=== PATIENT | male | born 1945 | race Caucasian/White ===

== ENCOUNTER 2017-04-26 14:38 | Emergency (ER) | payer OTHER ==
[2017-04-26 14:51] VITALS: TEMP 98.2
--- NOTE | 2017-04-26 15:25 | EDPHY ---
H & P Time Seen by Provider: 04/26/17 15:06 HPI/ROS: CHIEF COMPLAINT: Back pain HISTORY OF PRESENT ILLNESS: Patient is a history of back pain with surgery in August with spinal fusion by Dr. Zamudio at 2 levels. Patient did well but then had recurrent pain. He had a injection by Dr. Pinto on March 25 on the right-sided L3-4 which relieved his symptoms for about a week. 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 Going there included a [address] ride that took 90 minutes. He thinks that might have exacerbated his symptoms. He now has pain over the last week but much worse over the last 2 days which radiates to his left leg and thigh and is worse with weight-bearing. He had numbness and tingling of his left leg 2 days ago but not today. No incontinence. No fever or chills. Symptoms severe for 2 days. Radiates the left leg is noted above. REVIEW OF SYSTEMS: Eye: no change in vision ENT: no sore throat Cardiac: no chest pain or syncope Pulmonary: no cough or SOB Abdomen: no vomiting, diarrhea, abdominal pain Musculoskeletal: HPI Skin: no rash Neuro: no headache Constitutional: no fever : No associated incontinence A comprehensive 10 point review of systems is otherwise negative aside from elements mentioned in the history of present illness. PAST MEDICAL HISTORY: Previous spine surgery and bilateral knee surgery Social history: Recent travel as above, here with spouse General Appearance: Alert and conversant, cooperative. Eyes: No scleral icterus. ENT, Mouth: Normal mucous membranes. Respiratory: Normal respiratory effort, breath sounds equal, lungs are clear to auscultation. Cardiovascular: Regular rate and rhythm. Gastrointestinal: Abdomen is soft and non tender. Neurological: Alert and oriented x3. Normally conversant. Face symmetric, normal movement and sensation in all extremities. Toes downgoing bilaterally, no clonus. Good plantar and dorsiflexion of both feet. 1+ bilateral patellar and ankle reflexes. Straight leg raising negative bilaterally. Skin: Warm and dry, no rashes. Musculoskeletal: No peripheral edema and no joint swelling. No spine tenderness. Compartments are soft in both thighs and lower leg. Psychiatric: Not agitated. Emergency Department course/MDM: Patient requesting MRI and additional 10 mg oral oxycodone which is what he was taking prior to his previous surgery and took about 4 hours prior to arriving here. 174: MRI per Kamini shows extruded L2-3 disk on left, recurrent central stenosis at L5-S1. 1806: Discussed with Inderjit, who reviewed MRI personally; recommendations at 1817 pain control and oral steroids. Smoking Status: Never smoked Constitutional: Initial Vital Signs Temperature (C) 36.8 C 04/26/17 14:48 Heart Rate 86 04/26/17 14:48 Respiratory Rate 16 04/26/17 14:48 Blood Pressure 133/86 H 04/26/17 14:48 O2 Sat (%) 95 04/26/17 14:48 O2 Delivery Mode Room Air Allergies/Adverse Reactions: No Known Allergies Allergy (Unverified 09/20/11 12:10) Home Medications: Medication Instructions Recorded No Medications [NO HOME 1 ea MISC 09/20/11 MEDICATIONS] Oxycodone HCl 04/26/17 methylPREDNISolone [Medrol Dose 1 each PO AD #1 ea 04/26/17 Jatin] oxyCODONE HCL/ACETAMINOPHEN 1 each PO Q4 PRN #11 tablet 04/26/17 [Oxycodone-Acetaminophen 10-300] Medical Decision Making - Diagnostics Imaging Results: Imaging Impressions Lumbar Spine MRI 04/26/17 15:20 Impression: 1. Status post instrumentation and fusion lumbar spine from L4 through S1. 2. Extruded left paracentral disk protrusion at L2-L3, tracking inferiorly from the site of origin, with secondary lateral recess stenosis. 3. 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 4. Other level findings as above. Results called to Dr. Mingo Purdy at 6:00 PM. Differential Diagnosis: Differential considered including but not limited to spinal stenosis, disc herniation, hardware injury, bursitis, cauda equina syndrome. - Data Points Medications Given: Discontinued Medications Oxycodone HCl (Oxycodone Ir) 10 mg PO EDNOW ONE Stop: 04/26/17 15:20 Last Admin: 04/26/17 15:53 Dose: 10 mg Departure - Departure Disposition: Home, Routine, Self-Care Clinical Impression: Back pain Qualifiers: Back pain location: low back pain Chronicity: acute Back pain laterality: unspecified Sciatica presence: with sciatica Sciatica laterality: sciatica of left side Qualified Code(s): M54.42 - Lumbago with sciatica, left side Condition: Good Instructions: Acute Low Back Pain (ED) Referrals: Eladio Paul MD [Primary Care Provider] - As per Instructions Scottie Zamudio MD [Medical Doctor] - As per Instructions Prescriptions: methylPREDNISolone [Medrol Dose Jatin] 1 each PO AD #1 ea oxyCODONE HCL/ACETAMINOPHEN [Oxycodone-Acetaminophen 10-300] 1 each PO Q4 PRN # 11 tablet PRN Reason: pain
[2017-04-26] MEDS: oxyCODONE IR 5 MG TAB PO ONE (15:53)
[2017-04-26 18:37] VITALS: BP 145/74; PULSE 78; RESP 18; O2SAT 94
== END 2017-04-26 18:37 | disposition home or self-care (01) ==
DX: M54.42 Lumbago with sciatica, left side (principal)